=== PATIENT | female | born 1950 | race Caucasian/White ===

== ENCOUNTER 2024-12-31 17:53 | Inpatient (IN) | payer MEDICARE, SELFPAY ==
[2024-12-26 08:12] VITALS: BMI 34.3
[2024-12-30 13:58] VITALS: BMI 34.3
[2024-12-31] VITALS (10 sets, daily range): BP systolic 107–140; BP diastolic 51–69; PULSE 71–87; RESP 12–18; TEMP 36.1–37; O2SAT 94–100; BMI 34.3
--- NOTE | 2024-12-31 | DI.RAD.S_ITS ---
PROCEDURE: XR PELVIS 1-2V INDICATIONS: INTRA OP TOTAL LEFT HIP TECHNIQUE: Intra-operative view of the pelvis and hip acquired. COMPARISON: [facility] [place], XR PELVIS WITH LATERAL HIP LEFT, 12/25/2024, 16:30. FINDINGS: Bones: Intraoperative devices prior to placement of arthroplasty prostheses are in expected positions. No fractures or suspicious bony lesions. Soft tissues: Overlying surgical retractors are present, along with other intraoperative changes. IMPRESSION: Expected intraoperative appearance of a left total hip arthroplasty. Approved by: Ryne Gallegos M.D. on 12/31/2024 at 15:33
--- NOTE | 2024-12-31 06:00 | DI.RAD.S_ITS ---
PROCEDURE: XR HIP W PEL IF DONE LT 2V INDICATIONS: LUNA TECHNIQUE: AP pelvis and lateral view of the hip acquired. COMPARISON: [facility], [place], XR PELVIS WITH LATERAL HIP LEFT, 12/25/2024, 16:30. [facility], CR, XR PELVIS 1-2V, 12/31/2024, 14:41. FINDINGS: Bones: Patient is status post left hip arthroplasty, with hardware components in expected positions. The hip joint appears congruent. The visualized bony structures appear intact. Stable right hip arthroplasty. Soft tissues: Overlying postoperative changes are noted. No suspicious soft tissue densities. IMPRESSION: Expected post-operative appearance of a hip arthroplasty. Approved by: Ryne Gallegos M.D. on 12/31/2024 at 17:15
[2024-12-31] MEDS: ACETAMINOPHEN 325 MG TABLET 975 MG PO (12:46)
[2024-12-31] MEDS: VANCOMYCIN 1,000 MG in SODIUM CHLORIDE 0.9% 250 ML 250 MG IV (12:47)
--- NOTE | 2024-12-31 13:03 | PM.PREOP ---
Pre-operative Note Interval Note History & Physical reviewed/Exam performed by Physician: Yes Changes to H&P: No
[2024-12-31] MEDS: CELECOXIB 200 MG CAPSULE PO (13:17)
[2024-12-31] MEDS: LACTATED RINGERS 1,000 ML 42 ML IV ×2 (13:17→14:37)
[2024-12-31] MEDS: CEFAZOLIN 2 GM/100 ML PREMIX 100 ML IV ×2 (13:54→22:02)
[2024-12-31] MEDS: TRANEXAMIC ACID 1,000 MG VIAL 1000 MG INJ ×2 (13:55→15:32)
--- NOTE | 2024-12-31 14:20 | SUR.OPER ---
Lateral on padded OR bed. Gel axillary roll. Arms secured on padded armboard with pillow supporting top arm. Padded hip positioner braces x4 - anterior and posterior chest and pelvis. Additional gel pad used anterior pelvis. Gel pad under bottom leg from knee to foot and secured with tape over sheet.
[2024-12-31] MEDS: BUPIVACAINE LIPOSOME 266 MG/20 ML VIAL INJ (14:39)
[2024-12-31] MEDS: BUPIVACAINE 0.25% W/ EPI 30 ML VIAL 60 ML INJ (15:33)
--- NOTE | 2024-12-31 16:42 | EKG_ITS ---
[facility] [address] [place] [address] Test Date: 2024-12-31 Pat Name: Carolina Matta Department: [facility] Room: 213 Gender: Female Spiritual Advisor: elena : 1950 Requested By: Order Number: [id number] Reading MD: Salazar Buchanan Measurements Intervals Roby Rate: 84 P: 69 NE: QRS: -26 QRSD: 122 T: 118 QT: 390 QTc: 460 Interpretive Statements Sinus rhythm with premature atrial complexes Nonspecific intraventricular conduction delay Nonspecific ST and T wave abnormality Electronically Signed On 01-02-2025 17:26:07 PDT by Salazar Buchanan
--- NOTE | 2024-12-31 16:50 | P.OP_ITS ---
Operative Date/Time/Diagnoses Date of procedure: 12/31/24 Time of procedure: 14:00 Pre-op diagnosis: Severe left hip OA, avascular necrosis left hip Post-op diagnosis: same Procedure & Clinicians Procedure: Left total hip arthroplasty posterior approach Same procedure as scheduled: Yes Indications: The patient has had progressively worsening left hip pain with radiographic changes consistent with arthritis. Non-operative management has failed and the patient has requested total hip replacement. The risks, benefits and alternatives to surgery were discussed with the patient prior to proceeding. Risks discussed included, but were not limited to, failure to relieve pain, leg length discrepancy, dislocation, stiffness, infection, nerve damage, deep venous thrombosis, pulmonary embolism, stroke, coma, heart attack, permanent paralysis and , as well as the potential need for eventual revision of the prosthetic. Surgeon: Naye Quintanilla Supervisor Wet Room: Syed Saavedra Anesthesia Type: General Operative Notes Findings: Severe left hip osteoarthritis with almost no motion in the left hip nearly effusion, severe AVN, adequate bone, adequate stability Closure Type: primary Specimen(s): none sent Prosthetic devices, grafts, tissues, transplants, or devices: Quintanilla and Nephew R3 52, neutral poly liner,one 6.5 mm screw, polar stem size 3 cemented, 36 x -3 femoral head Estimated Blood Loss (mL): 250 Blood products transfused: none Procedure in detail: The patient was seen in the pre-operative area, where the patient identified the left hip as the operative site and this was marked with my initials. The patient received pre-operative antibiotics and was taken to the operating room and placed on the operative table in the right lateral decubitus position after satisfactory anesthesia. A part time flexible clerk out was performed. The left leg was prepared from the ankle to the iliac crest with ChloroPrep in the usual fashion and draped through sterile drapes. A PA was used during the procedure and was essential for intraoperative retraction and safe implantation of the components. The hip was approached through an approximately 20 cm incision centered over the greater trochanter and curving gently posteriorly as it went proximally. This was carried sharply to the fascia velvet, which was divided and retracted with a self retaining retractor. The trochanteric bursa was excised with care being taken to avoid the sciatic nerve, which was identified and protected throughout the case. The short external rotators were incised and the capsulomuscular flap was raised and tagged for later repair. The hip was dislocated, and a femoral neck osteotomy performed approximately 15 mm above the lesser trochanter. Retractors were placed around the femur. The canal was opened with a box cutting osteotome, followed by a T handled reamer and a lateralizing reamer. The starter broach was then used, followed by sequential broaching until there was good stability of the broach in the femur. Retractors were placed to expose the acetabulum. The labrum and central soft tissues were removed. Reaming was performed initially going up in 2 mm increments, then 1 mm increments until good bite was obtained with an odd sized reamer. The cup 1 mm larger than the last reamer was then inserted using the appropriate anteversion guides. It was further stabilized with a single screw. A trial neutral liner was placed. The broach was placed in the canal. A trial head and neck were then placed and the hip relocated and checked for leg length and stability. An intraoperative film confirmed the component position and no evidence of fracture. The patient was stable in the position of sleep, of squatting, and could be put through a range of motion with 45 degrees internal rotation without dislocation. At 90 degrees flexion, internal rotation to 80? was possible before dislocation. This was felt to be satisfactory and the appropriate components were opened, and the trials were removed. The acetabular liner was impacted into position. The final stem was then cemented into the prepared femoral canal. The canal was meticulously cleaned with the pulse lavage and carefully dried. A brief Betadine soak was performed while trialing with head options. The hip was meticulously irrigated with normal saline. Finally the femoral head was impacted onto the stem. The acetabulum was cleared of all material and the hip relocated one final time. The capsulomuscular flap was then repaired to the greater trochanter though an awl hole using the tag sutures. The short external rotators were repaired with a nonabsorbable suture. The fascia velvet was closed with Vicryl. The subcutaneous layer was closed with barbed sutures and skin laura. A jame dressing was applied and the patient was taken to recovery having tolerated the procedure well. Complications: none Post-operative Condition: stable Disposition: Acute Care Plan for aftercare: The patient will be maintained on a standard total hip replacement protocol with weight bearing as tolerated and posterior hip precautions. The patient will receive Aspirin and sequential compression devices for DVT prophylaxis. The patient will be discharged home when safe for the home environment.
[2024-12-31] MEDS: OXYCODONE IR 5 MG TABLET PO ×3 (16:58→22:02)
[2024-12-31] MEDS: ACETAMINOPHEN 325 MG TABLET 650 MG PO (18:31)
[2024-12-31] MEDS: LACTATED RINGERS 1,000 ML 100 ML IV (18:32)
[2024-12-31] MEDS: DOCUSATE 100 MG CAPSULE PO (22:02)
[2025-01-01 00:03] VITALS: BP 107/53; PULSE 79; RESP 18; TEMP 36.6; O2SAT 96
[2025-01-01] MEDS: ACETAMINOPHEN 325 MG TABLET 650 MG PO ×5 (00:32→23:27)
[2025-01-01 04:25] VITALS: BP 142/65; PULSE 89; RESP 18; TEMP 36.3; O2SAT 97
[2025-01-01] MEDS: CEFAZOLIN 2 GM/100 ML PREMIX 100 ML IV (05:38)
[2025-01-01 06:13] LABS: Hematocrit 29.6 % (36-46); Hemoglobin 10.2 g/dL (12.0-16.0)
[2025-01-01 08:00] VITALS: BP 132/52; PULSE 84; RESP 17; TEMP 36.6; O2SAT 99
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
--- NOTE | 2025-01-01 08:07 | PM.PNPO.1 ---
Subjective Subjective Interval history: She notes she is doing reasonably well. She had adequate pain control overnight. She had severe immobility problems preoperatively. Exam Vital Signs (past 8 hours): - 01/01/25 04:25 Temperature 97.3 F L Pulse Rate 89 Respiratory Rate 18 Blood Pressure 142/65 H Pulse Oximetry 97 Oxygen Flow Rate 0 Oxygen Delivery Method Room Air Oxygen Flow Rate 0 Narrative Exam Narrative: She was alert she is oriented she is neurologically intact distally she has moderate pain with range of motion in her hip as anticipated, her calf is soft distally Objective Labs 01/01/25 05:19 Labs: Laboratory Results - last 24 hr 01/01/25 05:19 Hgb 10.2 L Hct 29.6 L PFSH Medical History (Updated 12/27/24 @ 12:44 by Karlie Fowler RN) PUD (peptic ulcer disease) Osteoporosis Osteoarthritis Ankle fracture Chronic pain syndrome Anemia Rhabdomyolysis Acute kidney injury (04/2024) Left humeral fracture (04/2024) Depression Umbilical hernia Kidney stones HLD (hyperlipidemia) HTN (hypertension) (04/2024) Surgical History (Updated 01/01/25 @ 08:09 by Naye Quintanilla MD) S/P total right hip arthroplasty History of surgery on arm (04/2024) Hx of repair of rotator cuff (04/2024) Hx of tonsillectomy Social History household members: children Smoking Status: Never smoker alcohol intake: never Assessment & Plan Post-op Assessment and plan (1) S/P total hip arthroplasty: Postoperative Procedures: Procedures Operation Date: 12/31/24 14:30 Actual Procedure Side Surgeon p Total Hip Arthroplasty, Cemented Left Naye Quintanilla MD Postoperative day: 1 Postoperative status: marginal pain control Postoperative status narrative: She was doing reasonably well but she had severe immobility preoperatively. I think that she needs physical therapy and I anticipate a 2 day stay. Postoperative plan: routine post-op care Quality VTE Deep Vein Thrombosis/Pulmonary Embolism Present on Admission: No
[2025-01-01] MEDS: polyethylene glycoL 3350 17 GM POWD.PACK PO (08:17)
[2025-01-01] MEDS: SENNOSIDES 8.6 MG TABLET PO (08:17)
[2025-01-01] MEDS: ATORVASTATIN 20 MG TABLET 10 MG PO (08:17)
[2025-01-01] MEDS: CITALOPRAM 10 MG TABLET 20 MG PO (08:17)
[2025-01-01 08:18] VITALS: BP 132/52; PULSE 84
[2025-01-01] MEDS: FERROUS SULFATE 325 MG TABLET PO (08:18)
[2025-01-01] MEDS: OXYCODONE IR 10 MG TABLET PO (08:18)
[2025-01-01] MEDS: LOSARTAN 50 MG TABLET PO (08:18)
[2025-01-01] MEDS: DOCUSATE 100 MG CAPSULE PO ×2 (08:19→21:46)
[2025-01-01] MEDS: APIXABAN 5 MG TABLET 2.5 MG PO ×2 (08:19→21:45)
--- NOTE | 2025-01-01 10:35 | PT.IIE ---
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) Presence of unspecified artificial hip joint (12/31/24) Surgery Performed Operation Date: 12/31/24 14:30 Actual Procedures p Total Hip Arthroplasty, Cemented(Left) - Naye Quintanilla MD Surgical History (Last Updated 12/27/24 @ 07:25 by Karlie Fowler, RN) History of surgery on arm (04/2024) Hx of repair of rotator cuff (04/2024) Hx of tonsillectomy S/P total right hip arthroplasty Medical History (Last Updated 12/27/24 @ 12:44 by Kalrie Fowler RN) Acute kidney injury (04/2024) Anemia Ankle fracture Chronic pain syndrome Depression HLD (hyperlipidemia) HTN (hypertension) (04/2024) Kidney stones Left humeral fracture (04/2024) Osteoarthritis Osteoporosis PUD (peptic ulcer disease) Rhabdomyolysis Umbilical hernia Physical Therapy Inpatient Evaluation/Re-Eval M1 PT/OT-IP Prior Functional Status Start: 01/01/25 13:12 Freq: NEEDED Status: Active Protocol: Document 01/01/25 10:35 AB (Rec: 01/01/25 13:40 AB [id number]) Medical Review Prior Functional Status Medical History Yes Reviewed Communication able to make needs known; easily gets distracted and anxious Mobility and Gait pt stated that she had an accident last April 2024 and had LUE surgeries due to this and was on SNF rehab for ~ 2 months. Prior to accident last april, pt was independent with all mobilities and ambulation using a 4WW. L hip was also needing surgery at that time but due to UE surgery, hip sx was delayed. pt was d/c'd home and daughter was assisting pt. pt was still able to ambulate using a 4WW but had several falls at home and has not been walking for ~ 4 months due to worsening L hip pain. pt was w/c bound for ~ 4 months and needing 1 person step transfer assist with transfers without AD. Activities of Daily Pt having assist for dressing, toileting, and bathing Living and IADL's needs at home. Prior Functional Pt's daughter to stay with her for 6 weeks to assist. Level (Other details ) Social History Household Members children Living Arrangements House Number of Floors ( Two Floors Floors) Number of Stairs To pt stays on main level of the house Enter/Railing? has a ramp to enter Home Environment Standard Height Toilet,Walk in Shower,Ramp Home Equipment Four Wheel Walker,Manual Wheelchair,Bedside Commode, Shower Seat with Backrest,Hand Held Shower,Grab Bars Near Toilet,Grab Bars In Shower Additional Social Adjustable bed History Comment pt's daughter will be able to provide 24/7 assist to pt M2 PT-IP Current Condition Start: 01/01/25 13:12 Freq: NEEDED Status: Active Protocol: Document 01/01/25 10:35 AB (Rec: 01/01/25 13:40 AB [id number]) Physical Therapy Current Condition Current Condition Evaluation Date 01/01/25 Treatment Diagnosis s/p L LUNA posterior; difficulty in walking Onset Date 12/31/24 M3 PT-IP Subjective Start: 01/01/25 13:12 Freq: NEEDED Status: Active Protocol: Document 01/01/25 10:35 AB (Rec: 01/01/25 13:40 AB [id number]) Subjective Physical Therapy Visit Type Type Initial Evaluation Visit Start Time 10:35 Visit Stop Time 11:45 Number of SCREW MACHINE HAND Visits 0 Physical Therapy Visit Comments Patient Comments agreeable to do PT Therapy Pain Assessment Pain When Pain Assessed At Rest Pain Present Pain Present Pain Reported Location Left Hip Intensity 4 Scale Used Numeric (0 - 10) Pain Management Apply Cold,Distraction,Modification of Treatment,Re- Techniques positioning,Timing of Activity with Medications M4 PT-IP Mobility and Gait Start: 01/01/25 13:12 Freq: NEEDED Status: Active Protocol: Document 01/01/25 10:35 AB (Rec: 01/01/25 13:40 AB [id number]) PT-Bed Mobility Assessment Supine to Sit Supine to Sit Maximum Assistance,1 Person Assistance,2 Person Assistance Scooting Scooting to Edge of Maximum Assistance Bed PT-Transfer Assessment Sit to and From Stand Sit to and from Maximum Assistance,1 Person Assistance,2 Person Stand Assistance,Use of Upper Extremities Equipment Transfer Assistive Gait Belt,Front Wheeled Walker Device Orthotic/Prosthetic No Devices or Brace: Transfers Transfer Destination Chair Transfer Technique ambulated Transfer Ability Level of Assist Maximum Assistance,1 Person Assistance,Use of Upper Extremities Comments Mobility Comments pt in bed and agreeable to do PT. obtained PLOF and home set up. pt gets anxious easily. post-op folder provided and reviewed contents. educated pt on pt's L hip posterior precautions. pt required cues to recall. BP supine: 123/47 completed supine to sit max A x 1-2 and max cues. HOB elevated. pt able to sit on EOB mod A with increase posterior lean and cued to correct. pt required max A for scooting to EOB. BP checked: 127/41. pt sat on EOb for a few more minutes and BP rechecked: 125/51. pt completed sit to stand max A x 1-2 and max cues. increase leaning against bed behind pt and cued to stand upright. pt ambulated using fWW ~ 5 ft max A x 2 and max cues. max A x 1-2 for controlled descent to chair. positioned pt on the chair. call light and table placed within reach. informed pt regarding caregiver training and wants PT to call her daughter to arrange. 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 informed daughter regarding pt's level of assistance at this time and also pt have hip precautions. daughter stated that pt is going home 01/03 and will come pick pt up. daughter agreed to do caregiver training on day of d/c. daughter stated that pt informed her that she is going to go home tomorrow. informed daughter that PT does not know when the doctor will d/c pt but will informed the immigration case worker. daughter plans to come in at 1030 am on day of d/c and agreed to do PT caregiver training around that time. also informed daughter that pt will need a youth size FWW. options provided and wants PT to dispense FWW to pt. informed immigration case worker regarding d/c date concerns of pt 's daughter and also FWW order for pt. Gait Assessment Gait Gait Assistance Maximum Assistance,1 Person Assist Required: Distance (Feet) 5 Able to Maintain Yes Weight Bearing Status During Gait Assistive Devices Assistive Device Gait Belt,Front Wheeled Walker Orthotic/Prosthetic No Devices or Brace: Gait Deviations General Gait Pattern Decreased Stride Length,Decreased Feet Clearance,Step- to Gait Factors Limiting Gait Function Factors Limiting Decreased Activity Tolerance,Decreased Sensation, Gait Function Decreased Strength,Difficulty Following Directions, Limited Range of Motion,Pain,Poor Balance,Poor Safety Awareness PT-Balance Assessment Sitting Balance and Reactions Static Sitting Fair Balance Ability Dynamic Sitting Fair Balance Ability Standing Balance and Reactions Static Standing Poor Balance Ability Dynamic Standing Poor Balance Ability Device Used FWW M5 PT-IP Objective Assessments Start: 01/01/25 13:12 Freq: NEEDED Status: Active Protocol: Document 01/01/25 10:35 AB (Rec: 01/01/25 13:40 AB [id number]) Orientation Orientation/Cognition Level of Alertness Alert Safety Awareness Decreased Safety Awareness Memory Description Short Term Impaired Gross Range of Motion Lower Extremity ROM Assessment Within Functional Limits Strength Lower Extremity Strength Assessment Left Impaired Hip 3-/5 Knee 3+/5 Coordination Assessment Gross Coordination Gross Coordination WNL Muscle Tone Muscle Tone WNL Yes M6 PT-IP Treatment Start: 01/01/25 13:12 Freq: NEEDED Status: Active Protocol: Document 01/01/25 10:35 AB (Rec: 01/01/25 13:40 AB [id number]) Physical Therapy Treatment Exercises Exercises Heel Slides Education Education Provided Precautions,Weight Bearing Status,Post-Op Packet,Safety M7 PT-IP Assessment and Plan Start: 01/01/25 13:12 Freq: NEEDED Status: Active Protocol: Document 01/01/25 10:35 AB (Rec: 01/01/25 13:40 AB [id number]) PT Summary Assessment and Plan Potential Rehabilitation Fair Potential Status of Condition Evolving at Evaluation Summary Impairments Pain,ROM,Strength,Balance,Coordination,Sensation,Tone, Cognition,Bed Mobility,Transfers,Gait,Activity Tolerance Assessment Summary pt is a 74 y/o F s/p L LUNA posterior approach POD 1. pt has posterior hip precautions and is WBAT. pt requiring max A x 1-2 for transfers and ambulation using fWW and max cues for precautions and safety. pt will require 24/7 assist. informed daughter regarding pt's level of assistance and offered caregiver training . daughter lives in [place] and wants to just come in when pt is discharging. daughter agreed to do caregiver training on day of d/c at ~ 1030 am. will continue to assess pt's progress. Goals Bed Mobility Goal Minimal Assistance Transfer Goal Minimal Assistance,Front Wheeled Walker Gait Goal Minimal Assistance,Front Wheel Walker Gait Distance 50 Other Goals improve bed mobility, transfers, ambulation using FWW ~ 75 ft SBA Days to Meet Goals 10 Frequency of Treatment Other frequency 1-2x /day Treatment Plan Physical Therapy Bed Mobility Training,Transfer Training,Gait Training, Treatment Plan Therapeutic Exercise,Balance Retraining,Post Op Education,Discharge Planning,Hot or Cold Pack, Neuromuscular Re-ed,Coordination Retraining,Manual Therapy Precautions Posterior Hip No Hip Flexion > 90 degrees,No Hip Internal Rotation,No Precautions Hip Adduction Weight Bearing Status Weight Bearing Weight Bear as Tolerated Status Allowed Weight LLE WBAT Bearing Amount ( enter % or #) (%) Recommendations To Nursing Amount of Assist 2 Person Assist Needed Discharge Recommendations PT Discharge Home with 20/02 Assist Available,Home Health,SNF Rehab, Recommendations Home vs SNF Equipment Needed for FWW Home Before Discharge Transportation Needs Private Vehicle,Wheelchair/Cabulance at Discharge - PT assist 2
--- NOTE | 2025-01-01 12:00 | OT.IP.EVAL ---
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) Presence of unspecified artificial hip joint (12/31/24) Surgery Performed Operation Date: 12/31/24 14:30 Actual Procedures p Total Hip Arthroplasty, Cemented(Left) - Naye Quintanilla MD Past Medical History (Last Updated 12/27/24 @ 12:44 by Karlie Fowler, RN) Acute kidney injury (04/2024) Anemia Ankle fracture Chronic pain syndrome Depression HLD (hyperlipidemia) HTN (hypertension) (04/2024) Kidney stones Left humeral fracture (04/2024) Osteoarthritis Osteoporosis PUD (peptic ulcer disease) Rhabdomyolysis Umbilical hernia Surgical History (Last Updated 12/27/24 @ 07:25 by Karlie Folwer, RN) History of surgery on arm (04/2024) Hx of repair of rotator cuff (04/2024) Hx of tonsillectomy S/P total right hip arthroplasty Occupational Therapy Inpatient Evaluation/Re-Eval M1 PT/OT-IP Prior Functional Status Start: 01/01/25 12:00 Freq: Status: Active Protocol: Document 01/01/25 12:01 [facility] (Rec: 01/01/25 12:22 [facility] Desktop) Medical Review Prior Functional Status Communication I Mobility and Gait Pt had LUE ORIF in April and since then has been mainly just use of wc. Activities of Daily Pt having assist for dressing, toileting, and bathing Living and IADL's needs at home. Prior Functional Pt's daughter to stay with her for 6 weeks to assist. Level (Other details ) Social History Household Members children Living Arrangements House Number of Floors ( Two Floors Floors) Number of Stairs To Pt states has a ramp to enter the house and to stay on Enter/Railing? the main level. Home Environment High Toilet,Walk in Shower,Ramp Home Equipment Four Wheel Walker,Manual Wheelchair,Bedside Commode, Hand Held Shower,Grab Bars Near Toilet,Grab Bars In Shower Additional Social Adjustable bed History Comment M2 OT-IP Current Condition Start: 01/01/25 12:00 Freq: Status: Active Protocol: Document 01/01/25 12:01 [facility] (Rec: 01/01/25 12:22 [facility] Desktop) Occupational Therapy Current Condition Current Condition Evaluation Date 01/01/25 Treatment Diagnosis S/P L LUNA posterior precautions Diagnosis Onset Date 12/31/24 Post Operative Precautions Posterior Hip No Hip Flexion > 90 degrees,No Hip Internal Rotation,No Precautions Hip Adduction Weight Bearing Status Weight Bearing Weight Bear as Tolerated Status M3 OT- IP Subjective and Pain Start: 01/01/25 12:00 Freq: Status: Active Protocol: Document 01/01/25 12:01 [facility] (Rec: 01/01/25 12:22 [facility] Desktop) OT- Subjective Occupational Therapy Visit Type Type Initial Evaluation Visit Start Time 11:00 Visit Stop Time 12:00 Occupational Therapy Visit Comments Patient Comments Pt agreed to get up. Patient/Caregiver To go home. Goals OT Pain Assessment Pain When Pain Assessed During Mobility Pain Present Pain Present Pain Reported Location Left Hip Intensity 8 Scale Used Numeric (0 - 10) M4 OT- IP ADL's Start: 01/01/25 12:00 Freq: Status: Active Protocol: Document 01/01/25 12:01 [facility] (Rec: 01/01/25 12:22 [facility] Desktop) OT [id number] Comments OT Self-Feeding Not at meal time. Comments OT ADL-Grooming General Evaluation Areas Needing Combing/Brushing Hair Assistance Comments OT Grooming Comments Pt needing set-up assist. Pt will need assist for completeness to brush her hair. OT ADL-Oral Care General Eval Oral Care Ability Minimal Assistance Areas of Assistance Managing Dentures Comments Oral Care Comments Assist to rinse her dentures out at the sink, otherwise pt able to do while seated. OT ADL-Dressing General Eval Lower Body Dressing Total Assistance Ability Areas Needing Socks Assistance Comments OT Dressing Comments Initiated education of LB dressing equipment and techniques. OT ADL-Toileting Comments OT Toileting Not observed. Pt states prior use of briefs or BSC at Comments home. OT ADL-Bathing Comments OT Bathing Comments Pt will need assist. M5 OT- IP IADL's Start: 01/01/25 12:00 Freq: Status: Active Protocol: Document 01/01/25 12:01 [facility] (Rec: 01/01/25 12:22 [facility] Desktop) OT-Instrumental Activities of Daily Living Medication Management Medication Caregiver Provides Supervision Management Medication Use of pill organizer. Management Comments Money Management Money Management Pt's family assists. Comments Meal Preparation Meal Preparation Caregiver Provides Assist Flat Polisher Flat Polisher Caregiver Provides Assist M6 OT- IP Functional Cognition Start: 01/01/25 12:00 Freq: Status: Active Protocol: Document 01/01/25 12:01 [facility] (Rec: 01/01/25 12:22 [facility] Desktop) Cognitive Factors Limiting Selfcare Function Cognitive Ability Level of Alertness Alert Patient Orientation Name,Place,Situation Attention Span Capable of Focused Attention,Capable of Sustained Ability Attention Ability to Follow Able to Follow One Step Commands with Increased Time, Commands Able to Follow One Step Commands with Repetition Memory Description Short Term Impaired Safety Awareness Decreased Recall of Precautions,Decreased Ability to Apply Precautions Cognitive Comments Cognitive Assessment Pt able to recall 2/3 precautions. Pt needing vc for Comments safety awareness and to help incorporate her hip precautions for her ADL and mobility needs. Pt easily gets distracted. OT- Vision and Hearing OT- Hearing Assessment OT- Hearing Hearing Impaired Assessment OT- Vision Assessment Visual Acuity Glasses All The Time Visual Attentiveness WFL Occular Pursuits WFL M7 OT- IP Mobility and Balance Start: 01/01/25 12:00 Freq: Status: Active Protocol: Document 01/01/25 12:01 [facility] (Rec: 01/01/25 12:22 [facility] Desktop) OT- Bed Mobility Assessment Supine to Sit Supine to Sit Assist Moderate Assistance,2 Person Assistance Scooting Scooting to Edge of Moderate Assistance,2 Person Assistance Bed OT-Transfer Assessment Sit to and From Stand Sit to and from Moderate Assistance,2 Person Assistance Stand Transfers Transfer Ability Moderate Assistance,2 Person Assistance Technique Transfer Destination Bed,Chair Transfer Technique Stand Step Pivot Devices Transfer Assistive Gait Belt,Front Wheeled Walker Devices Comments Mobility Comments Pt needing two person assist for mobility and transfers . Assist for her balance and to help guide the FWW. Pt is very unsteady on her feet. BP supine 123/48, sitting 128/41 and 124/51. Pt needing vc for LLE and hand placement for mobility needs. OT- Balance Assessment Sitting Balance and Reactions Static Sitting Fair Balance Ability Dynamic Sitting Poor Balance Ability Standing Balance and Reactions Static Standing Poor Balance Ability Dynamic Standing Poor Balance Ability M8 OT- IP Objective Assessments Start: 01/01/25 12:00 Freq: Status: Active Protocol: Document 01/01/25 12:01 [facility] (Rec: 01/01/25 12:22 [facility] Desktop) OT Gross Range of Motion Upper Extremity Range of Motion Assessment Left Impaired OT Strength Upper Extremity Strength Assessment Left Impaired M9 OT- IP Assessment and Plan Start: 01/01/25 12:00 Freq: Status: Active Protocol: Document 01/01/25 12:01 [facility] (Rec: 01/01/25 12:22 [facility] Desktop) OT Summary Assessment and Plan Potential Rehabilitation Good Potential Analytic Complexity Moderate at Evaluation Summary OT Impairments Pain,Strength,Balance,Functional Mobility,Dressing, Toileting,Bathing,Toilet Transfers,Shower Transfers, Activity Tolerance Progress Towards Progressing Toward Goals Goals Assessment Summary Pt MOD complexity and main barriers are weakness, not able to recall her hip precautions, and now needing two person assist for her needs. Pt insistent on going home as her daughter to be there for 6 weeks. Pending caregiver training pt to go home with 24/7 assist versus SNF. Goals Self-Feeding Goal Standby Assistance Grooming Goal Standby Assistance Dressing Goal Minimal Assistance Toileting Goal Standby Assistance Bathing Goal Moderate Assistance Toilet Transfer Goal Standby Assistance Shower Transfer Goal Contact Guard Assistance Days to Meet Goals 25 Frequency of Treatment Other frequency 5x/week Treatment Plan OT Treatment Plan ADL Training,Functional Mobility,Patient/Family Education,Discharge Planning Other Treatment caregiver training, LB dressing practice Recommendations and Next Treatment Focus Discharge Recommendations OT Discharge SNF,Home with 24/7 Assist Available,Home Health,, Recommendations Home vs SNF Home Equipment Needs LB dressing equipment, FWW Transportation Needs Private Vehicle,Wheelchair/Cabulance at Discharge
[2025-01-01] MEDS: OXYCODONE IR 5 MG TABLET PO ×2 (12:17→23:28)
[2025-01-01 20:15] VITALS: BP 111/48; PULSE 77; RESP 16; TEMP 36.7; O2SAT 96
--- NOTE | 2025-01-02 01:00 | OT.IP.TRT ---
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) Presence of unspecified artificial hip joint (12/31/24) Surgery Performed Operation Date: 12/31/24 14:30 Actual Procedures p Total Hip Arthroplasty, Cemented(Left) - Naye Quintanilla MD Occupational Therapy Treatment Note M2 OT-IP Current Condition Start: 01/01/25 12:00 Freq: Status: Active Protocol: Document 01/01/25 12:01 [facility] (Rec: 01/01/25 12:22 [facility] Desktop) Occupational Therapy Current Condition Current Condition Evaluation Date 01/01/25 Treatment Diagnosis S/P L LUNA posterior precautions Diagnosis Onset Date 12/31/24 Post Operative Precautions Posterior Hip No Hip Flexion > 90 degrees,No Hip Internal Rotation,No Precautions Hip Adduction Weight Bearing Status Weight Bearing Weight Bear as Tolerated Status M3 OT- IP Subjective and Pain Start: 01/01/25 12:00 Freq: Status: Active Protocol: Document 01/02/25 12:20 [facility] (Rec: 01/02/25 12:28 [facility] Desktop) OT- Subjective Occupational Therapy Visit Type Type Treatment Note Visit Start Time 11:28 Visit Stop Time 12:15 Occupational Therapy Visit Comments Patient Comments Pt wanting to get up to use the BSC. Patient/Caregiver TO go home. Goals OT Pain Assessment Pain When Pain Assessed During Mobility Pain Present Pain Present Pain Reported Location Left Hip Intensity 5 Scale Used Numeric (0 - 10) M4 OT- IP ADL's Start: 01/01/25 12:00 Freq: Status: Active Protocol: Document 01/02/25 12:20 [facility] (Rec: 01/02/25 12:28 [facility] Desktop) OT [id number]-[id number]-Iamyrlv General Evaluation Self-Feeding Ability Independent OT ADL-Grooming General Evaluation Grooming Ability Standby Assistance Comments OT Grooming Comments Pt able to wash her face after set-up. OT ADL-Oral Care Comments Oral Care Comments Not performed. OT ADL-Dressing General Eval Lower Body Dressing Maximum Assistance Ability Areas Needing Socks Assistance OT ADL-Toileting General Evaluation Toileting Ability Maximum Assistance Areas Needing Perform Perineal Hygiene Assistance Comments OT Toileting MAXA to wipe while another person able to stand with pt Comments with FWW MODA x1. OT ADL-Bathing Bathing Type Bathing Type Sponge Bath General Evaluation Bathing Ability Maximal Assistance M5 OT- IP IADL's Start: 01/01/25 12:00 Freq: Status: Active Protocol: Document 01/01/25 12:01 [facility] (Rec: 01/01/25 12:22 [facility] Desktop) OT-Instrumental Activities of Daily Living Medication Management Medication Caregiver Provides Supervision Management Medication Use of pill organizer. Management Comments Money Management Money Management Pt's family assists. Comments Meal Preparation Meal Preparation Caregiver Provides Assist Tank Builder Helper Tank Builder Helper Caregiver Provides Assist M6 OT- IP Functional Cognition Start: 01/01/25 12:00 Freq: Status: Active Protocol: Document 01/02/25 12:20 [facility] (Rec: 01/02/25 12:28 [facility] Desktop) Cognitive Factors Limiting Selfcare Function Cognitive Comments Cognitive Assessment Pt able to follow commands but needing to be redirected Comments often. Pt able to follow her hip precautions after cues for ADL and mobility needs. M7 OT- IP Mobility and Balance Start: 01/01/25 12:00 Freq: Status: Active Protocol: Document 01/02/25 12:20 [facility] (Rec: 01/02/25 12:28 [facility] Desktop) OT- Bed Mobility Assessment Supine to Sit Supine to Sit Assist Maximum Assistance OT-Transfer Assessment Sit to and From Stand Sit to and from Moderate Assistance,1 Person Assistance Stand Transfers Transfer Ability Moderate Assistance,Maximum Assistance,1 Person Assistance Technique Transfer Destination Bed,Bedside Commode,Chair Devices Transfer Assistive Gait Belt,Front Wheeled Walker Devices Comments Mobility Comments Pt MAXA for bed mobility , assist to move her LLE to the edge of the bed and help get her trunk upright. Assist to scoot to the EOB. MODA to MAX X 1 to stand and transfer with FWW. OT- Balance Assessment Sitting Balance and Reactions Static Sitting Good Balance Ability Dynamic Sitting Fair Balance Ability Standing Balance and Reactions Static Standing Poor Balance Ability Dynamic Standing Poor Balance Ability M8 OT- IP Objective Assessments Start: 01/01/25 12:00 Freq: Status: Active Protocol: Document 01/01/25 12:01 [facility] (Rec: 01/01/25 12:22 [facility] Desktop) OT Gross Range of Motion Upper Extremity Range of Motion Assessment Left Impaired OT Strength Upper Extremity Strength Assessment Left Impaired M9 OT- IP Assessment and Plan Start: 01/01/25 12:00 Freq: Status: Active Protocol: Document 01/02/25 12:20 [facility] (Rec: 01/02/25 12:28 [facility] Desktop) OT Summary Assessment and Plan Potential Rehabilitation Good Potential Analytic Complexity Moderate at Evaluation Summary OT Impairments Pain,Strength,Balance,Functional Mobility,Dressing, Toileting,Bathing,Toilet Transfers,Shower Transfers, Activity Tolerance Progress Towards Progressing Toward Goals Goals Assessment Summary Pt moving better today and able to transfer to the [facility] with one person assist. Pt able to participate in sponge bath and toileting needs. Pt to have caregiver training with her daughter tomorrow at 10AM. Pt to go home with 24/7 assist and HH versus outptPT. Goals Self-Feeding Goal Standby Assistance Grooming Goal Standby Assistance Dressing Goal Minimal Assistance Toileting Goal Standby Assistance Bathing Goal Moderate Assistance Toilet Transfer Goal Standby Assistance Shower Transfer Goal Contact Guard Assistance Days to Meet Goals 20 Frequency of Treatment Other frequency 5x/week Treatment Plan OT Treatment Plan ADL Training,Functional Mobility,Patient/Family Education,Discharge Planning Other Treatment caregiver training Recommendations and Next Treatment Focus Discharge Recommendations OT Discharge Home with 24/7 Assist Available,Home Health Recommendations Home Equipment Needs LB dressing equipment, FWW Transportation Needs Private Vehicle at Discharge
[2025-01-02] MEDS: ACETAMINOPHEN 325 MG TABLET 650 MG PO ×3 (04:56→18:24)
--- NOTE | 2025-01-02 07:52 | PM.PNPO.1 ---
Subjective Subjective Date Patient Seen: 01/02/25 Time Patient Seen: 07:58 Interval history: Patient's pain is controlled with oral medication. Pain is localized to surgical site. Patient declines any new numbness or tingling at the surgical extremity. Patient denies any shortness of breath, dizziness, light-headedness, nausea, vomiting, fever or chills. She has been working with physical therapy. Been able do some mobilization with assistance. Exam Vital Signs (past 8 hours): Oxygen Delivery Method Room Air Oxygen Flow Rate 0 Narrative Exam Narrative: 5/5 strength in hip flexors, quadriceps, hamstrings, DF, PF, EHL bilaterally. Sensation to light touch intact throughout BLE. Calves soft, compressible, nontender. Dressing placed intraoperatively CDI. Objective Labs 01/01/25 05:19 PFSH Medical History (Updated 12/27/24 @ 12:44 by Karlie Fowler RN) PUD (peptic ulcer disease) Osteoporosis Osteoarthritis Ankle fracture Chronic pain syndrome Anemia Rhabdomyolysis Acute kidney injury (04/2024) Left humeral fracture (04/2024) Depression Umbilical hernia Kidney stones HLD (hyperlipidemia) HTN (hypertension) (04/2024) Surgical History (Updated 01/01/25 @ 08:09 by Naye Quintanilla MD) S/P total right hip arthroplasty History of surgery on arm (04/2024) Hx of repair of rotator cuff (04/2024) Hx of tonsillectomy Social History household members: children Smoking Status: Never smoker alcohol intake: never Assessment & Plan Post-op Postoperative Procedures: Procedures Operation Date: 12/31/24 14:30 Actual Procedure Side Surgeon p Total Hip Arthroplasty, Cemented Left Naye Quintanilla MD Postoperative day: 2 Postoperative status: doing well Postoperative plan: routine post-op care and ambulate Postoperative plan narrative: Hold Losartan due to hypotension. Plan to discharge to home tomorrow vs SNF. Posterior Hip Pre-cautions. Ambulate and weight bear as tolerated with assistive devices with inpatient PT. Aspirin 81 mg twice a day for 6 weeks for DVT prevention. Baseline pain relief with acetaminophen 500mg every 4 hours as needed. Oxycodone 5 mg every 4 hours as needed for breakthrough pain. Initiate physical therapy in the next 5-10 days. Keep dressing clean and dry. Keep dressing on until first office visit. If dressing becomes dirty or disrupted, replace with appropriate sized dressing. Follow up in clinic in 2 weeks for wound check. Contact clinic if there are any questions or concerns. Time Spent With Patient Time with patient: 15-24 minutes Quality VTE Deep Vein Thrombosis/Pulmonary Embolism Present on Admission: No
[2025-01-02 08:00] VITALS: BP 128/58; PULSE 82; RESP 17; TEMP 36.6; O2SAT 99
[2025-01-02] MEDS: polyethylene glycoL 3350 17 GM POWD.PACK PO (08:13)
[2025-01-02] MEDS: CITALOPRAM 10 MG TABLET 20 MG PO (08:13)
[2025-01-02] MEDS: APIXABAN 5 MG TABLET 2.5 MG PO ×2 (08:14→22:10)
[2025-01-02] MEDS: ATORVASTATIN 20 MG TABLET 10 MG PO (08:15)
[2025-01-02] MEDS: DOCUSATE 100 MG CAPSULE PO ×2 (08:16→22:11)
[2025-01-02] MEDS: FERROUS SULFATE 325 MG TABLET PO (08:16)
--- NOTE | 2025-01-02 13:51 | CM.DPC ---
DCP Cont: Per Ortho, pt seems to be tolerating PO pain meds and to work more with PT/OT today for plan of discharge tomorrow 01/03. Per PT/OT, pt yesterday was 2PA and has progressed today to 1PA and recommending home with 24/7 and HH vs outpt. CG training set up with Dtr for tomorrow 01/03 as pt cannot arrive today for CG training. SW met bedside with pt and explained role and pt confirms she feels she made progress with mobility today but still quite painful and difficult to move her leg and confirms her Dtr has a van with w/c ramp to safely get her home to [place] and Dtr taking 6 weeks off work to assist pt at home and stay 24/7. Pt confirms that Dtr can not transport or assist today but plans to be bedside tomorrow. SW discussed HH vs outpt PT/OT and pt confirms she has a hx of HH with [facility] and preference is to d/c home with new [facility]. Spoke to [facility] and they confirm referral already started from Orthopedic team and they already have F2F and orders and just requesting d/c summary to be faxed at discharge. Updated that current plan is discharge home tomorrow. JULIO left msg for Ortho PA to determine if pt could be discharged home today as pt seems medically stable but may not have safe d/c plan of 24/7 by family before tomorrow. Mirna Peñaloza, SUPPORT SPECIALIST
--- NOTE | 2025-01-02 15:59 | PT.IPTN ---
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) Presence of unspecified artificial hip joint (12/31/24) Surgery Performed Operation Date: 12/31/24 14:30 Actual Procedures p Total Hip Arthroplasty, Cemented(Left) - Naye Quintanilla MD Physical Therapy Treatment Note M2 PT-IP Current Condition Start: 01/01/25 13:12 Freq: NEEDED Status: Active Protocol: Document 01/01/25 10:35 [facility] (Rec: 01/01/25 13:40 AB [id number]) Physical Therapy Current Condition Current Condition Evaluation Date 01/01/25 Treatment Diagnosis s/p L LUNA posterior; difficulty in walking Onset Date 12/31/24 M3 PT-IP Subjective Start: 01/01/25 13:12 Freq: NEEDED Status: Active Protocol: Document 01/02/25 15:59 [facility] (Rec: 01/02/25 17:34 [facility] Desktop) Subjective Physical Therapy Visit Type Type Treatment Note Visit Start Time 15:10 Visit Stop Time 15:59 Notes 49 min Number of PREFORMS LAMINATOR Visits 0 Physical Therapy Visit Comments Patient Comments She reports she is able to walk around the bed earlier today with nursing Patient Goals Discharge home Therapy Pain Assessment Pain When Pain Assessed During Mobility Pain Present Pain Present Pain Reported Location Left Hip Intensity 6 Scale Used Numeric (0 - 10) Description Aching,Tender,With Movement Pain Behaviors Facial Grimacing,Guarding Pain Management Modification of Treatment,Re-positioning,Timing of Techniques Activity with Medications M4 PT-IP Mobility and Gait Start: 01/01/25 13:12 Freq: NEEDED Status: Active Protocol: Document 01/02/25 15:59 [facility] (Rec: 01/02/25 17:34 [facility] Desktop) PT-Bed Mobility Assessment Supine to Sit Supine to Sit Moderate Assistance,Head of Bed Elevated,Bedrails Sit to Supine Sit to Supine Moderate Assistance,Bedrails Scooting Scooting to Edge of Minimal Assistance Bed PT-Transfer Assessment Sit to and From Stand Sit to and from Minimal Assistance,Use of Upper Extremities Stand Equipment Transfer Assistive Gait Belt,Front Wheeled Walker Device Transfers Transfer Destination Bed,Bedside Commode Transfer Technique Stand Step Pivot Transfer Ability Level of Assist Contact Guard Assistance,Minimal Assistance,Use of Upper Extremities Comments Mobility Comments She needs assist to get left LE back into bed. She needs assist with trunk to get out of bed. Pt used bedside commode to urinate during this visit. Gait Assessment Gait Gait Assistance Contact Guard Assist,Minimum Assistance,1 Person Assist Required: Distance (Feet) 10 Assistive Devices Assistive Device Gait Belt,Front Wheeled Walker Gait Deviations General Gait Pattern Decreased Stride Length,Flexed Trunk Factors Limiting Gait Function Factors Limiting Decreased Activity Tolerance,Decreased Strength,Limited Gait Function Range of Motion,Pain,Poor Balance Comments Gait Comments She fatigues quickly with gait but puts good effort into increasing her distances. She was able to complete 10 feet with great effort and shortness of breath. She then ambulated 2 x 5 feet after a seated rest break. Good use of UE support on FWW during gait. PT-Balance Assessment Sitting Balance and Reactions Static Sitting Good Balance Ability Dynamic Sitting Good Balance Ability Standing Balance and Reactions Static Standing Fair Balance Ability Dynamic Standing Fair Balance Ability Device Used Fww M5 PT-IP Objective Assessments Start: 01/01/25 13:12 Freq: NEEDED Status: Active Protocol: Document 01/01/25 10:35 [facility] (Rec: 01/01/25 13:40 AB [id number]) Orientation Orientation/Cognition Level of Alertness Alert Safety Awareness Decreased Safety Awareness Memory Description Short Term Impaired Gross Range of Motion Lower Extremity ROM Assessment Within Functional Limits Strength Lower Extremity Strength Assessment Left Impaired Hip 3-/5 Knee 3+/5 Coordination Assessment Gross Coordination Gross Coordination WNL Muscle Tone Muscle Tone WNL Yes M6 PT-IP Treatment Start: 01/01/25 13:12 Freq: NEEDED Status: Active Protocol: Document 01/02/25 15:59 [facility] (Rec: 01/02/25 17:34 [facility] Desktop) Physical Therapy Treatment Exercises Exercises Ankle Pumps,Gluteal Sets,Quad Sets,Heel Slides,Supine Hip Abduction,Short Arc Quads Education Education Provided Precautions,Weight Bearing Status,Post-Op Packet,Safety Other Treatments Other Treatment she needs assistance for her exercises due to post-op Performed pain, she tolerates very small ROM for hip abduction due to pain She can verbalize 2/3 hip precautions independently M7 PT-IP Assessment and Plan Start: 01/01/25 13:12 Freq: NEEDED Status: Active Protocol: Document 01/02/25 15:59 [facility] (Rec: 01/02/25 17:34 [facility] Desktop) PT Summary Assessment and Plan Summary Impairments Pain,ROM,Strength,Balance,Coordination,Sensation,Tone, Cognition,Bed Mobility,Transfers,Gait,Activity Tolerance Progress Towards Slow Progress due to Activity Tolerance Goals Assessment Summary [place] shows good but slow progress in therapy today. She was able to increase her distance of gait with the FWW. She needs less assistance for all mobility. No LE buckling observed in standing and gait. She was able to participate in LE exercises with assistance although pain limits her ROM and strength. She is motivated to discharge home with care from her family. Family planned is planned prior to discharge. Pt requires assist of one person for mobility today. Recommend home health PT to assist with her functional recovery at home. Goals Bed Mobility Goal Minimal Assistance Transfer Goal Minimal Assistance,Front Wheeled Walker Gait Goal Minimal Assistance,Front Wheel Walker Gait Distance 50 Other Goals improve bed mobility, transfers, ambulation using FWW ~ 75 ft SBA Days to Meet Goals 10 Treatment Plan Physical Therapy Bed Mobility Training,Transfer Training,Gait Training, Treatment Plan Therapeutic Exercise,Balance Retraining,Post Op Education,Discharge Planning,Hot or Cold Pack, Neuromuscular Re-ed Precautions Posterior Hip No Hip Flexion > 90 degrees,No Hip Internal Rotation,No Precautions Hip Adduction Other Precautions fall risk Weight Bearing Status Weight Bearing Weight Bear as Tolerated Status Allowed Weight LLE WBAT with FWW Bearing Amount ( enter % or #) (%) Recommendations To Nursing Amount of Assist 1 Person Assist Needed Discharge Recommendations PT Discharge Home with 20/02 Assist Available,Home Health Recommendations Equipment Needed for youth FWW Home Before Discharge Transportation Needs Private Vehicle at Discharge - PT assist 1
--- NOTE | 2025-01-02 16:45 | PC.NURSE ---
Patient is pleasant and cooperative with care, denies pain. Back to bed with help of park landscape architect.
[2025-01-02 19:37] VITALS: BP 127/55; PULSE 85; RESP 17; TEMP 36.9; O2SAT 95
--- NOTE | 2025-01-02 21:03 | PM.PNPO.1 ---
Subjective Subjective Date Patient Seen: 01/02/25 Time Patient Seen: 21:00 Interval history: She did reasonably well with therapy today. She got up a couple of times she still has ongoing significant hip pain. She still requires a significant amount of assistance to mobilize out of bed to a chair. She is very concerned about ongoing constipation and says it has been about a week since she has had a bowel movement. Exam Vital Signs (past 8 hours): - 01/02/25 19:37 Temperature 98.4 F Pulse Rate 85 Respiratory Rate 17 Blood Pressure 127/55 L Pulse Oximetry 95 Oxygen Flow Rate 0 Oxygen Delivery Method Room Air Oxygen Flow Rate 0 Narrative Exam Narrative: She was alert she is oriented she was resting comfortably in bed, her dressings intact. She has a jame on that is working. Calves are soft distally. She is able to fire toe flexors and extensors, she has smooth motion with gentle range of motion in her hip but it is fairly stiff. Objective Labs 01/01/25 05:19 PFS Medical History (Updated 12/27/24 @ 12:44 by Karlie Fowler RN) PUD (peptic ulcer disease) Osteoporosis Osteoarthritis Ankle fracture Chronic pain syndrome Anemia Rhabdomyolysis Acute kidney injury (04/2024) Left humeral fracture (04/2024) Depression Umbilical hernia Kidney stones HLD (hyperlipidemia) HTN (hypertension) (04/2024) Surgical History (Updated 01/01/25 @ 08:09 by Naye Quintanilla MD) S/P total right hip arthroplasty History of surgery on arm (04/2024) Hx of repair of rotator cuff (04/2024) Hx of tonsillectomy Social History household members: children Smoking Status: Never smoker alcohol intake: never Assessment & Plan Post-op Postoperative Procedures: Procedures Operation Date: 12/31/24 14:30 Actual Procedure Side Surgeon p Total Hip Arthroplasty, Cemented Left Naye Quintanilla MD Postoperative day: 2 Postoperative status: doing well and other Postoperative status narrative: She was progressing with therapy. She had severe immobility preoperatively because her initial injury started with a humerus fracture and a substantial injury to her hip. She did work with therapy today. Her pain is decreasing. She was complaining of significant issues with constipation. Postoperative plan: routine post-op care Postoperative plan narrative: We are going to work on a bowel program. We are going to give her a Dulcolax suppository and if that is unsuccessful a Fleet's enema. She is going to continue to mobilize. The family is coming tomorrow for rehab training and they anticipate taking her home despite significant problems with immobility. We have work to set up home health physical therapy and visiting nursing and refer them prior to the hospital admission and the social workers are currently working on that. Quality VTE Deep Vein Thrombosis/Pulmonary Embolism Present on Admission: No
[2025-01-02] MEDS: OXYCODONE IR 5 MG TABLET PO (22:11)
[2025-01-02] MEDS: FLEETS ENEMA 1 EACH PR (22:40)
--- NOTE | 2025-01-02 22:48 | PC.NURSE ---
shift supervisor rn Patient has complaining of constipation x [address] Quintanilla did a bedside assessment and put in an order for more stoole softeners and enema. RN administered enema per patient request and placed on a bedpan per patient request. Call light within reach. Pt tolerated administration without any complaints.
[2025-01-03] MEDS: ACETAMINOPHEN 325 MG TABLET 650 MG PO ×2 (05:47→13:03)
--- NOTE | 2025-01-03 07:43 | P.DS_ITS ---
History of Present Illness History of Present Illness Date Patient Seen: 01/03/25 Time Patient Seen: 07:40 Chief complaint: Left LUNA Narrative: See attached H and P and office notes. She was admitted with severe left hip destruction and severe OA. She was taken to the operating room and underwent a left total hip arthroplasty. She had multiple medical problems and severe immobility preoperatively and she required hospitalization for medical and therapy stabilization. She did have problems with significant constipation. She also had problems with pain management. She was stabilized and ready for discharge. Discharge Providers Provider Date of admission: 12/31/24 17:53 Discharge Date: 01/03/25 Consults: 12/31/24 06:00 Consult to Anesthesiology Routine Comment: Consulting Provider: Anesthesiologist Reason for consultation: Regional block for post operative pain control Has provider been notified: No 12/31/24 17:53 Consult to Discharge Planning Routine Comment: Consult to Occupational Therapy Evaluate & Treat Comment: Physician Instructions: Evaluate and treat Consult to Physical Therapy Evaluate & Treat Comment: Physician Instructions: post op LUNA protocol 01/02/25 14:44 Consult to Physical Therapy Evaluate & Treat Comment: [facility] Physician Instructions: Set up youth sized FWW for home use Discharge provider: Naye Quintanilla MD Summary Hospital Course Discharge Diagnosis: Right total hip arthroplasty. Hospital Course: She underwent a right total hip arthroplasty. She tolerated the procedure without surgical complication. She had a severe flexion contracture and marked limited mobility preoperatively. She also had a recent left arm fracture. She required significant nursing care for mobilization and stabilization. She also had significant issues with constipation. She was mobilized with physical therapy in the nursing staff and was felt to be safe to transfer to home. Status at Discharge Cognitive/behavioral status at discharge: oriented Functional status at discharge: uses cane/walker Overall status at discharge: patient is progressing back to baseline Exam Vital Signs (past 8 hours): Oxygen Delivery Method Room Air Oxygen Flow Rate 0 Narrative Exam Narrative: She was alert she is oriented she has mild pain with range motion of the left hip she is able to fire toe flexors and extensors her dressings intact and her calves are soft distally. Bowel sounds are positive abdomen is distended but not tympanic. Objective Labs 01/01/25 05:19 [facility] Medical History (Updated 12/27/24 @ 12:44 by Karlie Fowler RN) PUD (peptic ulcer disease) Osteoporosis Osteoarthritis Ankle fracture Chronic pain syndrome Anemia Rhabdomyolysis Acute kidney injury (04/2024) Left humeral fracture (04/2024) Depression Umbilical hernia Kidney stones HLD (hyperlipidemia) HTN (hypertension) (04/2024) Surgical History (Updated 01/01/25 @ 08:09 by Naye Quintanilla MD) S/P total right hip arthroplasty History of surgery on arm (04/2024) Hx of repair of rotator cuff (04/2024) Hx of tonsillectomy Social History household members: children Smoking Status: Never smoker alcohol intake: never Discharge Assessment & Plan Assessment and Plan Assessment: She was making progress back to her baseline. Plan of Treatment: She does look stable for discharge to home with family assistance. The plan is for home health physical therapy and home health. Discharge Plan Discharge Plan Patient Disposition: Home Discharge orders & Medications Prescriptions: New polyethylene glycol 3350 17 gram Powder In Packet 17 g PO DAILY PRN (Reason: Constipation) Qty: 14 0RF oxycodone 5 mg Tablet 5 mg PO Q3H PRN (Reason: Pain, Moderate (4-6)) Qty: 30 0RF Eliquis 5 mg Tablet 2.5 mg PO BID Qty: 60 0RF Continued atorvastatin 10 mg tablet 10 mg PO DAILY citalopram 20 mg tablet 20 mg PO DAILY losartan 100 mg tablet 50 mg PO DAILY acetaminophen [Tylenol Extra Strength] 500 mg Tablet 500 - 1,000 mg PO Q8H PRN (Reason: Pain, Moderate) ferrous sulfate [Iron (ferrous sulfate)] 325 mg (65 mg iron) Tablet 325 mg PO DAILY Laxative (sennosides) 25 mg Tablet 25 mg PO DAILY PRN (Reason: Constipation.) Diet/Activity/Treatments Diet: Diet as Tolerated Activity: Walk multiple times a day. Avoid falls. Full weight on leg. Avoid high hip flexion. Cold/Heat Therapy: Apply ice to hip multiple times a day. Skin/Wound/Dressing Care Skin care: Okay to shower. Report to your healthcare provider any signs of infection, such as:: chills, fever, night sweats, increased pain, unusual drainage and unusual redness Dressing: Leave dressing on. Visit Report/Discharge Packet Instructions: DI for Hip Replacement, DI for Prescription Opioid Use Stand Alone Forms: Patient Portal/API, Stroke Signs & Symptoms, Surgery Discharge Quality VTE Deep Vein Thrombosis/Pulmonary Embolism Present on Admission: No
[2025-01-03 08:30] VITALS: BP 130/51; PULSE 103; RESP 22; TEMP 36.8; O2SAT 98
--- NOTE | 2025-01-03 09:06 | CM.DPC ---
Addendum entered by ASHLY Lozano 01/03/25 16:24: Addendum: Patient has discharged home with daughter to transport. [employer]PA[employer] faxed signed discharge summary to Rochelle AMAYA for continuity of care. PUNEET Betancourt Original Note: DCP Continued: Reviewed EMR and team rounds for pt?s medical status. Per MD, patient cleared to discharge and has orders. Rochelle is following patient for continuity of care. Pending patient to obtain Youth FWW and caregiver training for daughter when she arrives at bedside at 1000. Plan: DC orders in, anticipating patient to discharge home with daughter to transport and assist with recovery for next 6weeks. Rochelle AMAYA to follow as well. CM Team will continue to follow for coordination of discharge plans. PUNEET Betancourt
[2025-01-03] MEDS: DOCUSATE 100 MG CAPSULE PO (09:42)
[2025-01-03] MEDS: ATORVASTATIN 20 MG TABLET 10 MG PO (09:42)
[2025-01-03] MEDS: LOSARTAN 50 MG TABLET PO (09:42)
[2025-01-03] MEDS: OXYCODONE IR 5 MG TABLET PO ×2 (09:43→13:03)
[2025-01-03] MEDS: APIXABAN 5 MG TABLET 2.5 MG PO (09:44)
[2025-01-03] MEDS: CITALOPRAM 10 MG TABLET 20 MG PO (09:45)
[2025-01-03] MEDS: FERROUS SULFATE 325 MG TABLET PO (09:45)
--- NOTE | 2025-01-03 10:46 | OT.IP.TRT ---
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) Presence of unspecified artificial hip joint (12/31/24) Surgery Performed Operation Date: 12/31/24 14:30 Actual Procedures p Total Hip Arthroplasty, Cemented(Left) - Naye Quintanilla MD Occupational Therapy Treatment Note M2 OT-IP Current Condition Start: 01/01/25 12:00 Freq: Status: Active Protocol: Document 01/01/25 12:01 [facility] (Rec: 01/01/25 12:22 [facility] Desktop) Occupational Therapy Current Condition Current Condition Evaluation Date 01/01/25 Treatment Diagnosis S/P L LUNA posterior precautions Diagnosis Onset Date 12/31/24 Post Operative Precautions Posterior Hip No Hip Flexion > 90 degrees,No Hip Internal Rotation,No Precautions Hip Adduction Weight Bearing Status Weight Bearing Weight Bear as Tolerated Status M3 OT- IP Subjective and Pain Start: 01/01/25 12:00 Freq: Status: Active Protocol: Document 01/03/25 10:24 [facility] (Rec: 01/03/25 10:45 [facility] Desktop) OT- Subjective Occupational Therapy Visit Type Type Treatment Note Visit Start Time 10:00 Visit Stop Time 10:23 Occupational Therapy Visit Comments Patient Comments Pt in the bathroom, pt's family not present yet for 10AM caregiver training. Pt states family to come at 1230 now. Patient/Caregiver TO go home. Goals OT Pain Assessment Pain When Pain Assessed During Mobility Pain Present Pain Present Pain Reported Location Left Hip Intensity 5 Scale Used Numeric (0 - 10) M4 OT- IP ADL's Start: 01/01/25 12:00 Freq: Status: Active Protocol: Document 01/03/25 10:24 [facility] (Rec: 01/03/25 10:45 [facility] Desktop) OT ADL-Grooming Comments OT Grooming Comments Pt able to wash her hands after set-up of wash cloth. OT ADL-Oral Care Comments Oral Care Comments Not observed. OT ADL-Dressing General Eval Lower Body Dressing Maximum Assistance Ability OT ADL-Toileting General Evaluation Toileting Ability Maximum Assistance Areas Needing Manage Clothing,Perform Perineal Hygiene Assistance M5 OT- IP IADL's Start: 01/01/25 12:00 Freq: Status: Active Protocol: Document 01/01/25 12:01 [facility] (Rec: 01/01/25 12:22 [facility] Desktop) OT-Instrumental Activities of Daily Living Medication Management Medication Caregiver Provides Supervision Management Medication Use of pill organizer. Management Comments Money Management Money Management Pt's family assists. Comments Meal Preparation Meal Preparation Caregiver Provides Assist Animal Tech Animal Tech Caregiver Provides Assist M6 OT- IP Functional Cognition Start: 01/01/25 12:00 Freq: Status: Active Protocol: Document 01/03/25 10:24 [facility] (Rec: 01/03/25 10:45 [facility] Desktop) Cognitive Factors Limiting Selfcare Function Cognitive Ability Level of Alertness Alert Patient Orientation Name,Place,Situation Attention Span Capable of Focused Attention,Capable of Sustained Ability Attention Ability to Follow Able to Follow One Step Commands with Increased Time, Commands Able to Follow One Step Commands with Repetition Memory Description Short Term Impaired Safety Awareness Decreased Recall of Precautions,Decreased Ability to Apply Precautions Cognitive Comments Cognitive Assessment Pt still need vc for safety with her hip precautions Comments and just able to recall 2/3 of her posterior precautions. M7 OT- IP Mobility and Balance Start: 01/01/25 12:00 Freq: Status: Active Protocol: Document 01/03/25 10:24 [facility] (Rec: 01/03/25 10:45 [facility] Desktop) OT- Bed Mobility Assessment Sit to Supine Sit to Supine Assist Maximum Assistance OT-Transfer Assessment Sit to and From Stand Sit to and from Moderate Assistance Stand Transfers Transfer Ability Minimal Assistance,Moderate Assistance Technique Transfer Destination Bed,Chair,Toilet Devices Transfer Assistive Gait Belt,Front Wheeled Walker Devices Comments Mobility Comments Pt in the bathroom when OT came in. MODA x1 to stand with FWW and able to walk with BRYANNA to MODA for balance . Able to issued FWW to pt. Pt typically gets out on the right side of the bed and would be easier to get out of the left side. Pt states has lots of items on the left and wanting to try to get out of the right. MAX A- however pt's family prior assists pt for bed mobility needs. Passed along info of bed mobility for Pt to do caregiver training later. OT- Balance Assessment Sitting Balance and Reactions Static Sitting Good Balance Ability Dynamic Sitting Fair Balance Ability Standing Balance and Reactions Static Standing Fair Balance Ability Dynamic Standing Fair Balance Ability M8 OT- IP Objective Assessments Start: 01/01/25 12:00 Freq: Status: Active Protocol: Document 01/01/25 12:01 [facility] (Rec: 01/01/25 12:22 [facility] Desktop) OT Gross Range of Motion Upper Extremity Range of Motion Assessment Left Impaired OT Strength Upper Extremity Strength Assessment Left Impaired M9 OT- IP Assessment and Plan Start: 01/01/25 12:00 Freq: Status: Active Protocol: Document 01/03/25 10:24 [facility] (Rec: 01/03/25 10:45 [facility] Desktop) OT Summary Assessment and Plan Potential Rehabilitation Good Potential Analytic Complexity Moderate at Evaluation Summary OT Impairments Pain,Strength,Balance,Functional Mobility,Dressing, Toileting,Bathing,Toilet Transfers,Shower Transfers, Activity Tolerance Progress Towards Progressing Toward Goals Goals Assessment Summary Pt moving much better and able to practice bed mobility , toileting, and transfer needs. Pt to go home with assist and home health. Goals Self-Feeding Goal Standby Assistance Grooming Goal Standby Assistance Dressing Goal Minimal Assistance Toileting Goal Minimal Assistance Bathing Goal Moderate Assistance Toilet Transfer Goal Standby Assistance Shower Transfer Goal Contact Guard Assistance Days to Meet Goals 15 Frequency of Treatment Other frequency 5x/week Treatment Plan OT Treatment Plan ADL Training,Functional Mobility,Patient/Family Education,Discharge Planning Discharge Recommendations OT Discharge Home with 24/7 Assist Available,Home Health Recommendations Home Equipment Needs LB dressing equipment, FWW Transportation Needs Private Vehicle at Discharge
--- NOTE | 2025-01-03 13:08 | PT.IPTN ---
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) Presence of unspecified artificial hip joint (12/31/24) Surgery Performed Operation Date: 12/31/24 14:30 Actual Procedures p Total Hip Arthroplasty, Cemented(Left) - Naye Quintanilla MD Physical Therapy Treatment Note M2 PT-IP Current Condition Start: 01/01/25 13:12 Freq: NEEDED Status: Active Protocol: Document 01/01/25 10:35 AB (Rec: 01/01/25 13:40 AB [id number]) Physical Therapy Current Condition Current Condition Evaluation Date 01/01/25 Treatment Diagnosis s/p L LUNA posterior; difficulty in walking Onset Date 12/31/24 M3 PT-IP Subjective Start: 01/01/25 13:12 Freq: NEEDED Status: Active Protocol: Document 01/03/25 12:57 KJ (Rec: 01/03/25 13:07 KJ [id number]) Subjective Physical Therapy Visit Type Type Treatment Note Visit Start Time 12:28 Visit Stop Time 12:56 Physical Therapy Visit Comments Patient Comments Still having a lot of pain in the L hip. Still needs help moving the LLE. Patient Goals To go home and to be able to move better than before the surgery. Therapy Pain Assessment Pain When Pain Assessed During Mobility Pain Present Pain Present Pain Reported Location Left Hip Description Acute Pain Behaviors Calling Out,Facial Grimacing,Holding Area Pain Management Re-positioning Techniques M4 PT-IP Mobility and Gait Start: 01/01/25 13:12 Freq: NEEDED Status: Active Protocol: Document 01/03/25 12:57 KJ (Rec: 01/03/25 13:07 KJ [id number]) PT-Bed Mobility Assessment Rolling Type of Rolling Roll to Right Level of Assist Moderate Assistance Supine to Sit Supine to Sit Moderate Assistance Scooting Scooting to Edge of Contact Guard Assistance Bed PT-Transfer Assessment Sit to and From Stand Sit to and from Minimal Assistance Stand Equipment Transfer Assistive Gait Belt,Front Wheeled Walker Device Orthotic/Prosthetic No Devices or Brace: Transfers Transfer Destination Toilet Transfer Technique Stand Step Pivot Transfer Ability Level of Assist Minimal Assistance Comments Mobility Comments forward stooped position during standing and mobility Gait Assessment Gait Gait Assistance Minimum Assistance Required: Distance (Feet) 15 Able to Maintain Yes Weight Bearing Status During Gait Assistive Devices Assistive Device Gait Belt,Front Wheeled Walker Gait Deviations General Gait Pattern Decreased Stride Length,Flexed Trunk,Step-to Gait,Wide Based Gait Factors Limiting Gait Function Factors Limiting Pain Gait Function Comments Gait Comments pt/family state she is more upright than before the surgery M5 PT-IP Objective Assessments Start: 01/01/25 13:12 Freq: NEEDED Status: Active Protocol: Document 01/01/25 10:35 AB (Rec: 01/01/25 13:40 AB [id number]) Orientation Orientation/Cognition Level of Alertness Alert Safety Awareness Decreased Safety Awareness Memory Description Short Term Impaired Gross Range of Motion Lower Extremity ROM Assessment Within Functional Limits Strength Lower Extremity Strength Assessment Left Impaired Hip 3-/5 Knee 3+/5 Coordination Assessment Gross Coordination Gross Coordination WNL Muscle Tone Muscle Tone WNL Yes M6 PT-IP Treatment Start: 01/01/25 13:12 Freq: NEEDED Status: Active Protocol: Document 01/03/25 12:57 KJ (Rec: 01/03/25 13:07 KJ [id number]) Physical Therapy Treatment Exercises Exercises Ankle Pumps,Gluteal Sets,Quad Sets,Heel Slides Education Education Provided Precautions,Weight Bearing Status,Safety Other Treatments Other Treatment Reviewed precautions w/patient and family x 2, Performed reviewed in/out of bed transfers and correct methods to either side. Instructed pt on deep breathing during painful activities and on pacing herself. Reviewed use of incentive spirometry. M7 PT-IP Assessment and Plan Start: 01/01/25 13:12 Freq: NEEDED Status: Active Protocol: Document 01/03/25 12:57 KJ (Rec: 01/03/25 13:07 KJ [id number]) PT Summary Assessment and Plan Potential Rehabilitation Good Potential Status of Condition Evolving at Evaluation Summary Impairments Pain,ROM,Strength,Bed Mobility,Transfers,Gait,Activity Tolerance Progress Towards Slow Progress due to Pain Goals Assessment Summary Pt with increased mobility after surgery, will benefit from home health PT for problem solving. Goals Bed Mobility Goal Standby Assistance Transfer Goal Standby Assistance Gait Goal Standby Assistance Gait Distance 25 Days to Meet Goals 5 Frequency of Treatment Frequency Of Once a Day Treatment Treatment Plan Physical Therapy Bed Mobility Training,Transfer Training,Gait Training, Treatment Plan Therapeutic Exercise Other continue to progress ambulation Recommendations and Next Treatment Focus Recommendations To Nursing Amount of Assist 2 Person Assist Needed Discharge Recommendations PT Discharge Home with 20/02 Assist Available,Home Health Recommendations Other Discharge family has a wheelchair equipped van Recommendations Transportation Needs Private Vehicle at Discharge
--- NOTE | 2025-01-03 13:58 | PC.NURSE ---
Day shift: Left unit at approx 1315. Leaving with family and they were present to d/c teachings and caregiver training. Paperwork signed and all questions answered. Pt has all personal belongings. Pt has MD scripts already at home. Dressing remains unchanged. Tolerating ambulation well. Taken to car by Sarah CHIN via .
--- NOTE | 2025-01-20 21:17 | PM.CN ---
History of Present Illness Consult details Date Patient Seen: 01/20/25 Time Patient Seen: 20:00 Chief complaint: Left LUNA Reason for consult: Wound check Narrative: This is a 74-year-old female who had a left total hip arthroplasty. She was seen by the visiting nurse and she noticed a small amount of drainage on her wound so she cleansed it and put on a gel to absorb some of the drainage. She was seen by her PCP for a routine visit today for a Medicare check and her PCP was concerned. She wanted her to be evaluated but it was after hours and so she came to [facility] Emergency room for evaluation. She has been doing well with physical therapy. She has not had fevers or chills. She has fairly minimal pain. She has had a small amount of drainage. She does not have a known history of diabetes. Meds Home Medications and Allergies Home Medications ?Medication ?Instructions ?Recorded ?Confirmed ?Type acetaminophen 500 mg tablet 500 - 1,000 mg PO Q8H PRN Pain, 12/26/24 12/26/24 History (Tylenol Extra Strength) Moderate atorvastatin 10 mg tablet 10 mg PO DAILY 12/26/24 12/31/24 History citalopram 20 mg tablet 20 mg PO DAILY 12/26/24 12/31/24 History ferrous sulfate 325 mg (65 mg 325 mg PO DAILY 12/26/24 12/26/24 History iron) tablet (Iron (ferrous sulfate)) losartan 100 mg tablet 50 mg PO DAILY 12/26/24 12/31/24 History sennosides 25 mg tablet (Laxative 25 mg PO DAILY PRN Constipation. 12/26/24 12/26/24 History (sennosides)) apixaban 5 mg tablet (Eliquis) 2.5 mg (1/2 x 5 mg) PO BID #60 tabs 01/03/25 Rx oxycodone 5 mg tablet 5 mg PO Q3H PRN Pain, Moderate 01/03/25 Rx (4-6) #30 tabs polyethylene glycol 3350 17 gram 17 g PO DAILY PRN Constipation #14 01/03/25 Rx oral powder packet ea Allergies Allergy/AdvReac Type Severity Reaction Status Date / Time Penicillins AdvReac Severe Rash, Verified 12/31/24 12:45 fever. aspirin AdvReac Intestinal Verified 12/31/24 12:45 bleeding. ibuprofen AdvReac Intestinal Verified 12/31/24 12:45 bleeding. Review of Systems Review of Systems Narrative: She has not had fevers or chills. She denies a history of recent falls. She notes she has been feeling reasonably well. She was making progress with therapy. Exam Vital Signs (past 8 hours): Oxygen Delivery Method Room Air Oxygen Flow Rate 0 Narrative Exam Narrative: HEENT is benign she was alert and oriented lungs are clear cor is regular rhythm she was able to stand with minimal assistance and is more mobile and she was preoperatively, leg lengths are equal, her wound shows a small amount of erythema without significant active drainage there is about 1 drop on her dressing and there is an absorbent material on the wound, there was no significant surrounding erythema, there is no significant pain with range of motion in her hip, her calves are soft bilaterally Objective Labs 01/01/25 05:19 Labs: White count is 5.4, C-reactive protein is low, sed rate is elevated at 54 PFSH Medical History PUD (peptic ulcer disease) Osteoporosis Osteoarthritis Ankle fracture Chronic pain syndrome Anemia Rhabdomyolysis Acute kidney injury (04/2024) Left humeral fracture (04/2024) Depression Umbilical hernia Kidney stones HLD (hyperlipidemia) HTN (hypertension) (04/2024) Surgical History S/P total right hip arthroplasty History of surgery on arm (04/2024) Hx of repair of rotator cuff (04/2024) Hx of tonsillectomy Social History household members: children Tobacco & Substance Use Smoking Status: Never smoker alcohol intake: never Assessment & Plan Assessment and plan (1) S/P total hip arthroplasty: Qualifiers: Laterality: left Qualified Code(s): Z96.642 - Presence of left artificial hip joint Status: Acute (2) Drainage from wound: Status: Acute Plan Her wound is relatively benign. I went ahead and cultured the small area where there was a minimal gap without active drainage, the plan was to check her labs and to make sure that they were not elevated and placed a new dressing. I placed a new jame dressing on her wound. Her x-rays are pending. We are going to give her a single dose of antibiotics and then place her on oral antibiotics. There was really no significant drainage and I think it is extremely unlikely that this represents a periprosthetic joint infection. She does have some slight minimal erythema along her wound edge. She will follow up in the office within a week. I told him to call the office if they are having increasing problems. We gave her a 2nd jame dressing and told her that the battery only last for 7 days. She has home health nursing coming to the house and home physical therapy. Time-Based Coding :: [TOTAL MINUTES] spent with patient and on the chart (including review of chart, obtaining history, exam, reviewing outside data, placing orders, documenting exam and treatment plan, and counseling patient) on [DATE].
== END 2025-01-03 13:15 | disposition home health service (06) | DRG 470 ==
LOC: OR 01-01 13:50 → AC 01-01 13:50
PROVIDERS: Admitting Provider Orthopaedic Surgery; Referring Provider Orthopaedic Surgery; Visit Provider Orthopaedic Surgery
PROC: 0SRB0JZ Replacement of Left Hip Joint with Synthetic Substitute, Open Approach (ICD-10-PCS; CPT 27130; principal; 2024-12-31 14:30)
DX: M87.852 Other osteonecrosis, left femur (principal); M16.7 Other unilateral secondary osteoarthritis of hip; K59.00 Constipation, unspecified; E78.5 Hyperlipidemia, unspecified; F32.A Depression, unspecified; I10 Essential (primary) hypertension; D64.9 Anemia, unspecified; S79.812A Other specified injuries of left hip, initial encounter; W19.XXXA Unspecified fall, initial encounter
CPT/HCPCS: 36415; 72170; 73502; 85014; 85018; 93005; 97110; 97116; 97162; 97166; 97530; 97535; C1776; C1713; J0330; J0666; J0690; J1100; J2405; J2704; J3010

== ENCOUNTER 2025-01-20 18:18 | Emergency (ER) | payer MEDICARE, SELFPAY ==
[2024-12-31 16:46] VITALS: BMI 34.3
[2025-01-20 18:40] VITALS: BP 128/58; PULSE 87; RESP 16; TEMP 36.9; O2SAT 100; BMI 38.7
--- NOTE | 2025-01-20 19:21 | DI.RAD.S_ITS ---
PROCEDURE: XR HIP W PEL IF DONE LT 2V INDICATIONS: L hip replacement, concern for wound infection TECHNIQUE: AP pelvis with lateral view(s) of the left hip(s). COMPARISON: [facility], CR, XR HIP W PEL LT 2V, 12/31/2024, 16:38. [facility], CR, XR PELVIS WITH LATERAL HIP LEFT, 01/09/2025, 16:35. FINDINGS: Bones: No fractures or dislocations. Pelvic ring appears intact. No suspicious bony lesions. Bilateral arthroplasties. Hardware is intact without hardware fracture or periprosthetic lucency to suggest loosening. Alignment is stable. Soft tissues: The visualized bowel gas pattern is normal. No suspicious soft tissue calcifications. IMPRESSION: Bilateral arthroplasties. No soft tissue air. Dictated by: Adenike Vázquez M.D. on 01/20/2025 at 20:23 Approved by: Adenike Vázquez M.D. on 01/20/2025 at 20:24
--- NOTE | 2025-01-20 20:26 | PC.NURSE ---
This nurse in room to assess pt. Dr. Quintanilla also in room, swabbed pt's left hip wound for cultures and applied a new ANGELY dressing on.
[2025-01-20 20:34] LABS: Add Manual Diff / Slide Review NO; Basophils Absolute Auto 0 /uL (0-100); Basophils Percent Auto 0.6 % (0-2); Eosinophils Absolute Auto 200 /uL (0-450); Eosinophils Percent Auto 3.1 % (2-4); Hematocrit 33.9 % (36-46); Hemoglobin 11.2 g/dL (12.0-16.0); Lymphocytes Absolute Auto 1300 /uL (1100-4500); Lymphocytes Percent Auto 19.1 % (25-40); Mean Corpuscular HGB Conc 32.9 % (30-36); Mean Corpuscular Hemoglobin 30.6 PG (26-34); Monocytes Absolute Auto 400 /uL (0-900); Monocytes Percent Auto 6.7 % (3-14); Neutrophils Absolute Auto 4600 /uL (1500-7000); Neutrophils Percent Auto 70.5 % (50-75); Platelet Count 248 X10^3/uL (150-400); Red Blood Cell Count 3.65 X10^6/uL (4.0-5.2); Red Cell Distribution Width 16.3 % (11.6-14.8); White Blood Cell Count 6.5 X10^3/uL (4.5-11.0)
--- NOTE | 2025-01-20 20:34 | ED.WOUNDLAC ---
HPI - Wound/Laceration General Chief Complaint: Wound/Laceration Stated Complaint: left hip surgery cut infection Time Seen by Provider: 01/20/25 19:21 Source: patient and family Mode of arrival: Wheelchair History of Present Illness HPI narrative: 74-year-old female with history of left hip replacement surgery by local orthopedics Dr. shruthi Quintanilla, has had wound care visits, apparently draining wound. Advised to come to the emergency department Dr. Quintanilla who saw patient in the department. She has obtained wound culture she would like antibiotics started. She would like labs and x-rays. She will consult and then further consult. Related Data Home Medications ?Medication ?Instructions ?Recorded ?Confirmed acetaminophen 500 mg tablet 500 - 1,000 mg PO Q8H PRN Pain, 12/26/24 12/26/24 (Tylenol Extra Strength) Moderate atorvastatin 10 mg tablet 10 mg PO DAILY 12/26/24 12/31/24 citalopram 20 mg tablet 20 mg PO DAILY 12/26/24 12/31/24 ferrous sulfate 325 mg (65 mg 325 mg PO DAILY 12/26/24 12/26/24 iron) tablet (Iron (ferrous sulfate)) losartan 100 mg tablet 50 mg PO DAILY 12/26/24 12/31/24 sennosides 25 mg tablet (Laxative 25 mg PO DAILY PRN Constipation. 12/26/24 12/26/24 (sennosides)) Previous Rx's ?Medication ?Instructions ?Recorded apixaban 5 mg tablet (Eliquis) 2.5 mg (1/2 x 5 mg) PO BID #60 tabs 01/03/25 oxycodone 5 mg tablet 5 mg PO Q3H PRN Pain, Moderate 01/03/25 (4-6) #30 tabs polyethylene glycol 3350 17 gram 17 g PO DAILY PRN Constipation #14 01/03/25 oral powder packet ea sulfamethoxazole 800 1 tab PO BID #14 tabs 01/20/25 mg-trimethoprim 160 mg tablet (Bactrim DS) Allergies Allergy/AdvReac Type Severity Reaction Status Date / Time Penicillins AdvReac Severe Rash, Verified 12/31/24 12:45 fever. aspirin AdvReac Intestinal Verified 12/31/24 12:45 bleeding. ibuprofen AdvReac Intestinal Verified 12/31/24 12:45 bleeding. Patient History Medical History PUD (peptic ulcer disease) Osteoporosis Osteoarthritis Ankle fracture Chronic pain syndrome Anemia Rhabdomyolysis Acute kidney injury (04/2024) Left humeral fracture (04/2024) Depression Umbilical hernia Kidney stones HLD (hyperlipidemia) HTN (hypertension) (04/2024) Surgical History S/P total right hip arthroplasty History of surgery on arm (04/2024) Hx of repair of rotator cuff (04/2024) Hx of tonsillectomy Social History household members: children Smoking Status: Never smoker alcohol intake: never Smoking Status: Never smoker Exam Narrative Exam Narrative: GENERAL: Well-developed patient, in mild distress. HEAD: Atraumatic. Normocephalic. EYES: Pupils equal round and reactive. Extraocular motions intact. No scleral icterus. No injection or drainage. ENT: Nose without bleeding, purulent drainage. Throat without erythema, tonsillar hypertrophy or exudate. Airway patent. NECK: Trachea midline. Non tender CARDIOVASCULAR: Regular rate and rhythm without murmurs, gallops, or rubs. RESPIRATORY: Clear to auscultation. Breath sounds equal bilaterally. No wheezes, rales, or rhonchi. GASTROINTESTINAL: Abdomen soft, non-tender, nondistended. EXTREMITIES: No edema or joint tenderness. Left buttock area wound VAC in place, dressing just recently placed, not removed for exam. Wound per Dr. Quintanilla, wound culture obtained per Dr. Quintanilla. BACK: Nontender without deformity or crepitance. No flank tenderness. NEURO: AOx3. Motor functions grossly nonfocal. SKIN: No rash or erythema of visible areas Initial Vital Signs Initial Vital Signs: Vital Signs Temperature 98.4 F 01/20/25 18:40 Pulse Rate 87 01/20/25 18:40 Respiratory Rate 16 01/20/25 18:40 Blood Pressure 128/58 L 01/20/25 18:40 Pulse Oximetry 100 01/20/25 18:40 Oxygen Delivery Method Room Air 01/20/25 18:40 Course Orders Ordered: ED Orders 01/20/25 19:21 XR hip w pel LT 2V Stat 01/20/25 20:22 CRP [C-Reactive Protein Quant] Stat Complete Blood Count AUTO DIFF Stat Comprehensive Metabolic Panel Stat ESR [Erythrocyte Sedimentation Rate] Stat Lactate (Lactic Acid) Stat Procalcitonin Stat 01/20/25 20:30 Wound Culture and Gram Stain Stat 01/20/25 20:40 Blood Culture Stat Discontinued Medications Acetaminophen (Acetaminophen 325 Mg Tablet) 650 mg PO NOW ONE Stop: 01/20/25 22:43 Last Admin: 01/20/25 22:52 Dose: 650 mg Documented By: ELLIE Vancomycin HCl 2,000 mg/ (Sodium Chloride) 500 mls @ 250 mls/hr IV NOW ONE Stop: 01/20/25 20:34 Last Infusion: 01/20/25 23:45 Dose: Infused Documented By: Admin: 01/20/25 21:24 Dose: 250 mls/hr Documented By: ELLIE Sodium Chloride (Normal Saline 0.9%) 1,000 mls @ 1,000 mls/hr IV BOLUS ONE Stop: 01/20/25 21:52 Last Infusion: 01/20/25 22:39 Dose: Infused Documented By: Admin: 01/20/25 21:25 Dose: 1,000 mls/hr Documented By: ELLIE Vital Signs Vital signs: Vital Signs - 8 hr 01/20/25 22:40 Temperature 98.8 F Pulse Rate 88 Respiratory Rate 17 Blood Pressure 122/59 L Pulse Oximetry 96 Oxygen Delivery Method Room Air MDM - Wound/Laceration Lab Data Attestation: I reviewed the patient's lab results. Lab results narrative: White blood cell count 6500, hemoglobin 11.2. Platelets adequate. Glucose 184. Normal renal function. Unremarkable electrolytes and serum carbon dioxide. Liver functions normal. Initial lactate 2.6 elevated. CRP 0.6 noted, ESR 54, procalcitonin 0.055. 01/20/25 20:22 01/20/25 20:22 Labs: Lab Results 01/20/25 01/20/25 Range/Units 20:22 22:37 WBC 6.5 (4.5-11.0) X10^3/uL RBC 3.65 L (4.0-5.2) X10^6/uL Hgb 11.2 L (12.0-16.0) g/dL Hct 33.9 L (36-46) % MCV 93.0 (80-100) fL MCH 30.6 (26-34) PG MCHC 32.9 (30-36) % RDW 16.3 H (11.6-14.8) % Plt Count 248 (150-400) X10^3/uL Neut % (Auto) 70.5 (50-75) % Lymph % (Auto) 19.1 L (25-40) % [place] % (Auto) 6.7 (3-14) % Eos % (Auto) 3.1 (2-4) % Baso % (Auto) 0.6 (0-2) % Neut # (Auto) 4600 (4940-8250) /uL Lymph # (Auto) 1300 (4052-3065) /uL [place] # (Auto) 400 (0-900) /uL Eos # (Auto) 200 (0-450) /uL Baso # (Auto) 0 (0-100) /uL ESR 54 H (0-20) MM/HR Sodium 138 (137-145) mmol/L Potassium 4.4 (3.4-5.1) mmol/L Chloride 105 (98-107) mmol/L Carbon Dioxide 24 (22-32) mmol/L BUN 20 H (7-17) mg/dL Creatinine 0.79 (0.52-1.04) mg/dL Estimated GFR > 60 (>60) mL/min BUN/Creatinine Ratio 25.3 H (6-22) Glucose 184 H (70-99) mg/dL Lactate 2.6 H 1.7 (0.7-2.1) mmol/L Calcium 9.3 (8.4-10.2) mg/dL Total Bilirubin 0.6 (0.2-1.3) mg/dL AST 26 (14-36) IU/L ALT 16 (<35) IU/L Alkaline Phosphatase 89 (38-126) U/L C-Reactive Protein 0.6 (<1.0) mg/dL Total Protein 7.4 (6.3-8.2) g/dL Albumin 4.1 (3.5-5.0) g/dL Globulin 3.3 (1.7-4.1) g/dL Albumin/Globulin Ratio 1.2 (1.0-2.8) Procalcitonin 0.055 (<0.5) ng/mL Imaging Data Extremity x-ray #1: Radiologist's Impression: Close Hip X-Ray (Signed) Adenike Vázquez - 01/20/25 Launch?Image [address] [address] XRay Report Signed Patient: Carolina Matta MR#: [id number] : 1950 Acct:[id number] Age/Sex: 74 / F Date of Service: 01/20/25 Loc: ED Accession Number: [id number] Procedure: XR hip w pel LT 2V Ordering Provider: Angella Bull D.O. PROCEDURE: XR HIP W PEL IF DONE LT 2V INDICATIONS: L hip replacement, concern for wound infection TECHNIQUE: AP pelvis with lateral view(s) of the left hip(s). COMPARISON: [facility], CR, XR HIP W PEL LT 2V, 12/31/2024, 16:38. [facility], CR, XR PELVIS WITH LATERAL HIP LEFT, 01/09/2025, 16:35. FINDINGS: Bones: No fractures or dislocations. Pelvic ring appears intact. No suspicious bony lesions. Bilateral arthroplasties. Hardware is intact without hardware fracture or periprosthetic lucency to suggest loosening. Alignment is stable. Soft tissues: The visualized bowel gas pattern is normal. No suspicious soft tissue calcifications. IMPRESSION: Bilateral arthroplasties. No soft tissue air. Dictated by: Adenike Vázquez M.D. on 01/20/2025 at 20:23 Approved by: Adenike Vázquez M.D. on 01/20/2025 at 20:24 MDM Narrative Medical decision making narrative: 74-year-old female with history of prior bilateral hip replacement surgeries, draining left wound, seen in the emergency department with Dr. Quintanilla who sent wound culture. She would like IV vancomycin antibiotic initiated, ordered. Labs sent. X-ray left hip ordered. Wound culture left hip wound ordered. IV vancomycin given. IV fluids given for elevated lactate, repeat lactate 1.7 normalized. 2330, case discussed with Orthopedic surgery Dr. Quintanilla, advises further outpatient treatment with oral Bactrim, prescription sent to her pharmacy. Advised to see her in clinic later this week. Home with family. Discharge Plan Departure Patient Disposition: Home Clinical Impression: Cellulitis Instructions: DI for Wound Infection Activity Restrictions/Additional Instructions: History of bilateral hip surgeries, draining wound from left buttock hip area, seen by your orthopedic surgery here in the emergency department who obtained a wound culture from this site. Dr. Quintanilla requested IV vancomycin antibiotic which was administered. Screening labs remarkable for elevated lactate, fluids given, repeat lactate improved. Hemodynamically stable. Dr. Quintanilla your orthopedic surgeon requested further antibiotics with oral Bactrim (sulfamethoxazole trimethoprim), prescription sent to your pharmacy. Take antibiotics as prescribed. She would like to see you in clinic later this week but thought that you might be going to awaiting, you can see you early following week as long as things are going well. Follow up with Orthopedic surgery as above. Return to this/nearest emergency department for any change worsening symptoms or any concerns prior. Prescriptions: New sulfamethoxazole-trimethoprim [Bactrim DS] 800-160 mg tablet 1 tab PO BID Qty: 14 0RF No Action atorvastatin 10 mg tablet 10 mg PO DAILY citalopram 20 mg tablet 20 mg PO DAILY losartan 100 mg tablet 50 mg PO DAILY acetaminophen [Tylenol Extra Strength] 500 mg Tablet 500 - 1,000 mg PO Q8H PRN (Reason: Pain, Moderate) ferrous sulfate [Iron (ferrous sulfate)] 325 mg (65 mg iron) Tablet 325 mg PO DAILY Laxative (sennosides) 25 mg Tablet 25 mg PO DAILY PRN (Reason: Constipation.) polyethylene glycol 3350 17 gram Powder In Packet 17 g PO DAILY PRN (Reason: Constipation) Qty: 14 0RF oxycodone 5 mg Tablet 5 mg PO Q3H PRN (Reason: Pain, Moderate (4-6)) Qty: 30 0RF Eliquis 5 mg Tablet 2.5 mg PO BID Qty: 60 0RF Stand Alone Forms: Patient Portal/API
[2025-01-20 20:43] LABS: Lactate (Lactic Acid) 2.6 mmol/L (0.7-2.1)
[2025-01-20 20:45] LABS: Alanine Aminotransferase 16 IU/L (<35); Albumin 4.1 g/dL (3.5-5.0); Albumin Globulin Ratio 1.2 (1.0-2.8); Alkaline Phosphatase 89 U/L (38-126); Aspartate Aminotransferase 26 IU/L (14-36); BUN Creatinine Ratio 25.3 (6-22); Bilirubin Total 0.6 mg/dL (0.2-1.3); Blood Urea Nitrogen 20 mg/dL (7-17); C-Reactive Protein Quant 0.6 mg/dL (<1.0); Calcium 9.3 mg/dL (8.4-10.2); Carbon Dioxide 24 mmol/L (22-32); Chloride 105 mmol/L (98-107); Estimated Glomerular Filt Rate > 60 mL/min (>60); Globulin 3.3 g/dL (1.7-4.1); Glucose 184 mg/dL (70-99); HEMOLYSIS 15 (0-50); Potassium 4.4 mmol/L (3.4-5.1); Sodium 138 mmol/L (137-145); Total Protein 7.4 g/dL (6.3-8.2)
[2025-01-20 20:57] LABS: Erythrocyte Sedimentation Rate 54 MM/HR (0-20)
[2025-01-20 20:59] LABS: Procalcitonin 0.055 ng/mL (<0.5)
[2025-01-20] MEDS: VANCOMYCIN 2,000 MG in SODIUM CHLORIDE 0.9% 500 ML 250 MG IV (21:24)
[2025-01-20] MEDS: SODIUM CHLORIDE 0.9% 1,000 ML 1000 ML IV (21:25)
[2025-01-20 22:02] LABS: Reflexed Lactate in 2 Hours Y
[2025-01-20 22:40] VITALS: BP 122/59; PULSE 88; RESP 17; TEMP 37.1; O2SAT 96
[2025-01-20] MEDS: ACETAMINOPHEN 325 MG TABLET 650 MG PO (22:52)
[2025-01-20 22:58] LABS: Lactate 2HR (Lactic Acid Rflx) 1.7 mmol/L (0.7-2.1)
== END 2025-01-20 23:46 | disposition home or self-care (01) ==
PROVIDERS: Emergency Medicine; Emergency Provider Emergency Medicine
DX: L03.116 Cellulitis of left lower limb (principal); Z96.643 Presence of artificial hip joint, bilateral
CPT/HCPCS: 36415; 73502; 80053; 83605; 84145; 85025; 85651; 86140; 87040; 87070; 87075; 87077; 87147; 87186; 87205; 96365; 96366; 99284